=== PATIENT | male | born 2000 | race Caucasian/White ===

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

== ENCOUNTER 2020-06-03 20:56 | Emergency (ER) | payer SELFPAY ==
[2020-06-03] MEDS ORDERED: HYDROCODONE/ACETAMINOPHEN 5-325 MG TABLET PO ONE (21:19)
--- NOTE | 2020-06-03 21:19 | ER Document Report ---
HPI - HPI Patient complains to provider of: Left wrist /hand injury Time Seen by Provider: 06/03/20 21:16 Context: 19-year-old male with no previous medical problems presents to the emergency room complaining of left wrist pain. Patient states he was moving a TV when he accidentally hit his left wrist on the TV. Happened 2 days ago. Has not been taking anything for the pain. History of a previous left fifth metacarpal fracture years ago splinted and wrapped at home. Associated Symptoms: None Exacerbated by: Movement Relieved by: Remaining still Similar symptoms previously: No Recently seen / treated by doctor: No - ROS Systems Reviewed and Negative: Yes All other systems reviewed and negative - NEURO Neurology: DENIES: Weakness - MUSCULOSKELETAL Musculoskeletal: REPORTS: Extremity pain - DERM Skin Color: Normal, Roberta Skin Problems: None Past Medical History - General Information source: Patient - Social History Smoking Status: Current Every Day Smoker Frequency of alcohol use: None Drug Abuse: None Family History: Reviewed & Not Pertinent Pulmonary Medical History: Reports: Hx Asthma Renal/ Medical History: Denies: Hx Peritoneal Dialysis Psychiatric Medical History: Reports: Hx Attention Deficit Hyperactivity Disorder Past Surgical History: Reports: Hx Tonsillectomy - Immunizations Immunizations up to date: Yes Hx Diphtheria, Pertussis, Tetanus Vaccination: Yes Vertical Provider Document - CONSTITUTIONAL Agree With Documented VS: Yes Exam Limitations: No Limitations General Appearance: Mild Distress - INFECTION CONTROL TRAVEL OUTSIDE OF THE [place] IN LAST 30 DAYS: No - HEENT HEENT: Atraumatic, Normocephalic - NECK Neck: Normal Inspection, Supple - RESPIRATORY Respiratory: Breath Sounds Normal, No Respiratory Distress - CARDIOVASCULAR Cardiovascular: Regular Rate, Regular Rhythm, No Murmur - MUSCULOSKELETAL/EXTREMETIES Musculoskeletal/Extremeties: Tender - Tenderness on palpation to the left distal radius. Painful range of motion with flexion extension and lateral movement to the left wrist. There is no swelling. There is no obvious deformity noted. - NEURO Level of Consciousness: Awake, Alert, Appropriate Motor/Sensory: No Motor Deficit, No Sensory Deficit Notes: Positive left radial pulse. Capillary refill less than 3 seconds. - DERM Integumentary: Warm, Dry, No Rash Course - Re-evaluation Re-evalutation: 06/03/20 22:51 Patient is resting comfortably with decreased pain. Reviewed x-ray results with patient. Will place in ulnar gutter splint, sling, discharged home with #6 of [place]. He was counseled importance of an outpatient follow-up with orthopedics. On-call physician was provided. Patient was given strict return to the emergency room guidelines. Return for any new or worsening symptoms. All questions were answered. Patient verbalized understanding and agrees with plan of care. - Diagnostic Test Radiology reviewed: Reports reviewed Procedures - Immobilization Left Hand Time completed: 23:16 Pre-Proc Neuro Vasc Exam: Normal Immobilizer type: Volar splint, Sling Performed by: PCT Post-Proc Neuro Vasc Exam: Normal Alignment checked and good: Yes Discharge - Discharge Clinical Impression: Metacarpal bone fracture Qualifiers: Encounter type: initial encounter Metacarpal bone: fifth Fracture type: closed Metacarpal location: base Fracture alignment: nondisplaced Laterality: left Qualified Code(s): S62.347A - Nondisplaced fracture of base of fifth metacarpal bone, left hand, initial encounter for closed fracture Fracture, hamate Qualifiers: Encounter type: initial encounter Hamate bone location: hook process Fracture type: closed Fracture alignment: nondisplaced Laterality: left Qualified Code(s): S62.155A - Nondisplaced fracture of hook process of hamate [unciform] bone, left wrist, initial encounter for closed fracture Condition: Stable Disposition: HOME, SELF-CARE Instructions: Avulsion Fracture ([facility]), Possible Hidden Fracture ([facility]) Additional Instructions: Keep splint on until seen by orthopedics. Do not get splint wet. Take medication as prescribed. You can take Tylenol as needed for minor pain. Return to the emergency room for any new or worsening symptoms. Forms: Return to Work Referrals: ABDIRAHMAN GUY MD [Primary Care Provider] - Follow up as needed BENITO PEDRO DO [ACTIVE STAFF] - Follow up in 3-5 days (Call tomorrow for an outpatient follow-up appointment.)
--- NOTE | 2020-06-03 22:34 | RADIOLOGY REPORT (SQ) ---
Left wrist x-ray three views on 06/03/2020 at 9:49 PM CLINICAL INDICATION: Injury, pain COMPARISON: None FINDINGS: There is an old healed fracture of the fifth metacarpal diaphysis. There is an age indeterminate possibly acute minimally displaced avulsion fracture involving the ulnar aspect of the hamate. There is also an age indeterminate possibly acute avulsion fracture involving the ulnar base of the fifth metacarpal. No other fracture is noted. Visualized joints are well aligned. IMPRESSION: Age indeterminate but possibly acute fractures of the hamate and base of the fifth metacarpal as above.
[2020-06-03] MEDS ORDERED: HYDROCODONE/ACETAMINOPHEN 5-325 MG (6 TAB/ER DISP) PO PRN (22:55)
[2020-06-03 23:21] VITALS: BP 140/72
== END 2020-06-03 23:20 | disposition home or self-care (01) ==
LOC: ER 20:56
DX: S62.155A Nondisplaced fracture of hook process of hamate [unciform] bone, left wrist, initial encounter for closed fracture (principal); S62.347A Nondisplaced fracture of base of fifth metacarpal bone, left hand, initial encounter for closed fracture; W22.09XA Striking against other stationary object, initial encounter; F17.200 Nicotine dependence, unspecified, uncomplicated
CPT/HCPCS: 99283